=== PATIENT | male | born 1990 | race American Indian/Alaskan Native ===

== ENCOUNTER 2019-05-21 07:47 | Emergency (ER) | payer MEDICAID ==
[2019-05-21 08:01] VITALS: BP 117/71; PULSE 100
--- NOTE | 2019-05-21 08:01 | EDM.PDOC ---
ED HPI GENERAL MEDICAL PROBLEM - General Stated Complaint: FEVER/SORE THROAT/CHEST HURTS/EARS HURT Time Seen by Provider: 05/21/19 08:01 Source of Information: Reports: Patient, RN, RN Notes Reviewed History Limitations: Reports: No Limitations - History of Present Illness INITIAL COMMENTS - FREE TEXT/NARRATIVE: Pt to ER with c/o sinus congestion, cough, sore throat, sore chest, ear pain, headache, fever since Saturday. He states it has been getting worse. Has been taking Tylenol, Dayquil, and Robitussin without help. Patient denies N/V/D. States fever has gotten up to 102. States he has generalized body aches. Onset: Gradual Onset Date: 05/19/19 Duration: Constant, Getting Worse Location: Reports: Head, Face, Chest Head Pain Score (Numeric/FACES): 5 - Related Data Allergies Allergy/AdvReac Type Severity Reaction Status Date / Time Penicillins Allergy Rash Verified 05/21/19 07:59 Home Meds: Home Meds Omeprazole Magnesium [Prilosec Otc] 20 mg PO DAILY 10/02/18 [History] Past Medical History - Past Health History Medical/Surgical History: Denies Medical/Surgical History Social & Family History - Family History Family Medical History: Noncontributory - Caffeine Use Caffeine Use: Reports: Coffee, Soda ED ROS GENERAL - Review of Systems Review Of Systems: ROS reveals no pertinent complaints other than HPI. ED EXAM, GENERAL - Physical Exam Exam: See Below Exam Limited By: No Limitations General Appearance: Alert, WD/WN, Mild Distress Eye Exam: Bilateral Eye: EOMI, Normal Inspection Ears: Normal External Exam, Normal Canal, Hearing Grossly Normal, Other Ear Exam: Bilateral Ear: TM Dull Nose: Normal Inspection, Other (congestion) Throat/Mouth: Other (pharnyx erythematous) Head: Atraumatic, Normocephalic Neck: Normal Inspection, Supple, Non-Tender, Full Range of Motion, Lymphadenopathy (L), Lymphadenopathy (R) Respiratory/Chest: No Respiratory Distress, Lungs Clear, Normal Breath Sounds, No Accessory Muscle Use, Chest Non-Tender Cardiovascular: Normal Peripheral Pulses, Regular Rate, Rhythm, No Edema, No Gallop, No JVD, No Murmur, No Rub Peripheral Pulses: 2+: Radial (L), Radial (R) GI/Abdominal: Normal Bowel Sounds, Soft, Non-Tender, No Organomegaly, No Distention (Male) Exam: Deferred Rectal (Males) Exam: Deferred Back Exam: Normal Inspection, Full Range of Motion, NT Neurological: Alert, Oriented, CN II-XII Intact, Normal Cognition, Normal Gait, Normal Reflexes, No Motor/Sensory Deficits Psychiatric: Normal Affect, Normal Mood Skin Exam: Warm, Dry, Intact, Normal Color, No Rash Lymphatic: Adenopathy (+2 ant cervical bilaterally) Course - Vital Signs Last Recorded V/S: Last Vital Signs Temp 97.2 F 05/21/19 07:59 Pulse 100 05/21/19 07:59 Resp 16 05/21/19 07:59 BP 117/71 05/21/19 07:59 Pulse Ox 99 05/21/19 07:59 - Orders/Labs/Meds Orders: Active Orders 24 hr Category Date Time Status CULTURE STREP A CONFIRMATION [RM] Stat Lab 05/21/19 08:05 Results STREP SCRN A RAPID W CULT CONF [] Stat Lab 05/21/19 08:05 Received Labs: Rapid Strep: Negative Influenza A: Influenza B: Departure - Departure Time of Disposition: 08:42 Disposition: Home, Self-Care 01 Condition: Fair Clinical Impression: URI (upper respiratory infection) Qualifiers: URI type: unspecified viral URI Qualified Code(s): J06.9 - Acute upper respiratory infection, unspecified - Discharge Information *PRESCRIPTION DRUG MONITORING PROGRAM REVIEWED*: No *COPY OF PRESCRIPTION DRUG MONITORING REPORT IN PATIENT VIJI: No Instructions: Cool Mist Vaporizer, Viral Respiratory Infection, [id number], How to Perform a Sinus Rinse, [id number], Upper Respiratory Infection, Adult, [id number] Forms: ED Department Discharge Additional Instructions: RX: Cheratussin, Flonase May use Tylenol and/or Ibuprofen as directed for pain/fever Drink plenty of water/gatorade May use sinus rinses as directed Follow up with your primary care facility if no improvement Rest - My Orders Last 24 Hours: My Active Orders 05/21/19 08:05 CULTURE STREP A CONFIRMATION [RM] Stat STREP SCRN A RAPID W CULT CONF [RM] Stat - Assessment/Plan Last 24 Hours: My Active Orders 05/21/19 08:05 CULTURE STREP A CONFIRMATION [RM] Stat STREP SCRN A RAPID W CULT CONF [RM] Stat
== END 2019-05-21 08:50 | disposition home or self-care (01) ==
LOC: DL.ED 07:47
DX: J06.9 Acute upper respiratory infection, unspecified (principal); Z88.0 Allergy status to penicillin; Z79.899 Other long term (current) drug therapy
CPT/HCPCS: 87081; 87430; 87804; 99283

== ENCOUNTER 2019-09-04 18:26 | Emergency (ER) | payer MEDICAID ==
[2019-09-04 18:41] VITALS: BP 133/92; PULSE 80
--- NOTE | 2019-09-04 18:58 | EDM.PDOC ---
ED HPI GENERAL MEDICAL PROBLEM - General Chief Complaint: Gastrointestinal Problem Stated Complaint: STOMACH, NAUSEA, GROGGY Time Seen by Provider: 09/04/19 18:56 Source of Information: Reports: Patient History Limitations: Reports: No Limitations - History of Present Illness INITIAL COMMENTS - FREE TEXT/NARRATIVE: few days h/o nausea but eating ok, whole family with pos brandyz. been working today but nit getting better. - Related Data Allergies Allergy/AdvReac Type Severity Reaction Status Date / Time Penicillins Allergy Rash Verified 09/04/19 18:37 Home Meds: Home Meds Omeprazole Magnesium [Prilosec Otc] 20 mg PO DAILY 10/02/18 [History] Past Medical History - Past Health History Medical/Surgical History: Denies Medical/Surgical History HEENT History: Reports: Impaired Vision Cardiovascular History: Reports: None Respiratory History: Reports: None Gastrointestinal History: Reports: None Genitourinary History: Reports: None Musculoskeletal History: Reports: None Neurological History: Reports: None Psychiatric History: Reports: None Endocrine/Metabolic History: Reports: None Hematologic History: Reports: None Immunologic History: Reports: None Oncologic (Cancer) History: Reports: None Dermatologic History: Reports: None - Infectious Disease History Infectious Disease History: Reports: None - Past Surgical History Head Surgeries/Procedures: Reports: None Social & Family History - Family History Family Medical History: Noncontributory - Tobacco Use Smoking Status *Q: Never Smoker - Caffeine Use Caffeine Use: Reports: Coffee, Soda - Recreational Drug Use Recreational Drug Use: No ED ROS GENERAL - Review of Systems Review Of Systems: Comprehensive ROS is negative, except as noted in HPI. ED EXAM, GI/ABD - Physical Exam Exam: See Below Exam Limited By: No Limitations General Appearance: Alert, WD/WN, Mild Distress, Other (discomfort). No: Active Emesis Ears: Hearing Grossly Normal Throat/Mouth: Normal Voice, No Airway Compromise Head: Atraumatic Neck: Non-Tender, Full Range of Motion Respiratory/Chest: No Respiratory Distress Cardiovascular: Regular Rate, Rhythm GI/Abdominal Exam: Soft, Non-Tender Neurological: Alert, Oriented, Normal Cognition, Normal Gait, No Motor/Sensory Deficits Psychiatric: Flat Affect Skin Exam: Warm, Dry, Normal Color Lymphatic: No Adenopathy Course - Vital Signs Last Recorded V/S: Last Vital Signs Temp 36.7 C 09/04/19 18:38 Pulse 80 09/04/19 18:38 Resp 16 09/04/19 18:38 BP 133/92 H 09/04/19 18:38 Pulse Ox 99 09/04/19 18:38 - Re-Assessments/Exams Free Text/Narrative Re-Assessment/Exam: 09/04/19 19:34 results discussed with pt. Departure - Departure Time of Disposition: 19:35 Disposition: Home, Self-Care 01 Condition: Good Clinical Impression: Flu syndrome - Discharge Information Instructions: Influenza, Adult, [id number] Forms: ED Department Discharge Additional Instructions: 1) rest and sleep as much as possible 2) keep warm, drink lots of hot liquids 3) tylenol or motrin for fever and body aches 4) recheck as needed rx given; zofran 4mg ODT bid prn x 4 Sepsis Event Note - Evaluation Sepsis Screening Result: No Definite Risk - Focused Exam Vital Signs: Vital Signs Temp Pulse Resp BP Pulse Ox 09/04/19 18:38 36.7 C 80 16 133/92 H 99 Date Exam was Performed: 09/04/19 Time Exam was Performed: 19:34
== END 2019-09-04 19:40 | disposition home or self-care (01) ==
LOC: DL.ED 18:26
DX: J11.1 Influenza due to unidentified influenza virus with other respiratory manifestations (principal); Z88.0 Allergy status to penicillin
CPT/HCPCS: 87804; 99283

== ENCOUNTER 2020-12-26 08:48 | Emergency (ER) | payer BC, MEDICAID ==
[2020-12-26 09:03] VITALS: BP 139/83; PULSE 70
--- NOTE | 2020-12-26 09:28 | EDM.PDOC ---
ED HPI GENERAL MEDICAL PROBLEM - General Chief Complaint: Abdominal Pain Stated Complaint: [id number] BAD PAIN IN STOMACH Time Seen by Provider: 12/26/20 09:05 Source of Information: Reports: Patient, Old Records, RN, RN Notes Reviewed History Limitations: Reports: No Limitations - History of Present Illness INITIAL COMMENTS - FREE TEXT/NARRATIVE: Pt presents to ER from home by POV with c/o left sided abdominal pain for 3 weeks. He states he went to clinic and was told he had a "stomach bug" but no specific treatment was prescribed. He reports Hx of chronic left sided abdominal pain that has waxed and waned for over three years. Pt was prescribed Omeprazole at one point, but hasn't noticed any change with it. He states this pain flared up once about a year ago, and he went to the ER in [place] and was diagnosed with anxiety disorder. Pt states he does have a lot of anxiety, but he hasn't noticed an association of his anxiety level with abdominal pain flare ups. He has never had a GI consultation or endoscopy. Denies fever, chills, N/V/D/C, dysuria, radiating pain, flank pain, or black/bloody/melanotic stools. Duration: Chronic, Intermittent, Recurring, Waxing/Waning Location: Reports: Abdomen Quality: Reports: Ache Severity: Moderate Improves with: Reports: None Worsens with: Reports: None Associated Symptoms: Reports: No Other Symptoms Left Lower Abdomen Pain Score (Numeric/FACES): 6 - Related Data Allergies Allergy/AdvReac Type Severity Reaction Status Date / Time Penicillins Allergy Rash Verified 12/26/20 08:58 Home Meds: Home Meds Omeprazole Magnesium [Prilosec Otc] 20 mg PO DAILY 10/02/18 [History] Past Medical History - Past Health History Medical/Surgical History: Denies Medical/Surgical History HEENT History: Reports: Impaired Vision Cardiovascular History: Reports: None Respiratory History: Reports: None Gastrointestinal History: Reports: GERD Genitourinary History: Reports: None Musculoskeletal History: Reports: None Neurological History: Reports: None Psychiatric History: Reports: Anxiety Endocrine/Metabolic History: Reports: None Hematologic History: Reports: None Immunologic History: Reports: None Oncologic (Cancer) History: Reports: None Dermatologic History: Reports: None - Infectious Disease History Infectious Disease History: Reports: None - Past Surgical History Head Surgeries/Procedures: Reports: None Social & Family History - Family History Family Medical History: No Pertinent Family History - Tobacco Use Tobacco Use Status *Q: Former Tobacco User Used Tobacco, but Quit: Yes Month/Year Tobacco Last Used: 09/26/20 - Caffeine Use Caffeine Use: Reports: Soda - Recreational Drug Use Recreational Drug Use: No - Living Situation & Occupation Living situation: Reports: with Family Occupation: Employed ED ROS GENERAL - Review of Systems Review Of Systems: Comprehensive ROS is negative, except as noted in HPI. ED EXAM, GI/ABD - Physical Exam Exam: See Below Exam Limited By: No Limitations Eyes: Bilateral: Normal Appearance Nose: Normal Inspection Throat/Mouth: Normal Inspection, Normal Lips, Normal Voice, No Airway Compromise Head: Atraumatic, Normocephalic Neck: Normal Inspection Respiratory/Chest: No Respiratory Distress, Lungs Clear, Normal Breath Sounds, No Accessory Muscle Use, Chest Non-Tender Cardiovascular: Regular Rate, Rhythm GI/Abdominal Exam: Normal Bowel Sounds, Soft, No Organomegaly, No Distention, No Abnormal Bruit, No Mass, Pelvis Stable, Tender (LUQ, LLQ). No: Guarding, Rigid, Rebound Back Exam: Normal Inspection Extremities: Normal Inspection Neurological: Alert, Oriented, CN II-XII Intact, Normal Cognition, Normal Gait, No Motor/Sensory Deficits Psychiatric: Normal Affect, Normal Mood Skin Exam: Warm, Dry, Intact, Normal Color, No Rash Course - Vital Signs Last Recorded V/S: Last Vital Signs Temp 97.0 F 12/26/20 08:59 Pulse 70 12/26/20 08:59 Resp 16 12/26/20 08:59 BP 139/83 12/26/20 08:59 Pulse Ox 99 12/26/20 08:59 - Orders/Labs/Meds Orders: Active Orders 24 hr Category Date Time Status Peripheral IV Care [RC] . DIRECTED Care 12/26/20 09:53 Active UA RFX EMIL AND CULT IF INDIC [URIN] Stat Lab 12/26/20 10:25 Received Sodium Chloride 0.9% [Saline Flush] Med 12/26/20 09:52 Active 10 ml FLUSH ASDIRECTED PRN Peripheral IV Insertion Adult [OM.PC] Stat Oth 12/26/20 09:52 Ordered Medication Orders Sodium Chloride (Sodium Chloride 0.9% 10 Ml Syringe) 10 ml FLUSH ASDIRECTED PRN PRN Reason: Keep Vein Open Last Admin: 12/26/20 10:00 Dose: 10 ml Documented by: SAMANTHA Labs: Laboratory Tests 12/26/20 12/26/20 Range/Units 09:21 09:21 WBC 6.6 (5.0-10.0) 10^3/uL RBC 6.03 (4.6-6.2) 10^6/uL Hgb 16.7 (14.0-18.0) g/dL Hct 50.2 (40.0-54.0) % MCV 83.3 (80-100) fL MCH 27.7 (27.0-34.0) pg MCHC 33.3 (33.0-35.0) g/dL Plt Count 286 (150-450) 10^3/uL Neut % (Auto) 66.3 (42.2-75.2) % Lymph % (Auto) 26.0 (20.5-50.1) % [place] % (Auto) 5.4 (2-8) % Eos % (Auto) 2.0 (1.0-3.0) % Baso % (Auto) 0.3 (0.0-1.0) % Sodium 141 (136-145) mmol/L Potassium 4.6 (3.5-5.1) mmol/L Chloride 102 (98-107) mmol/L Carbon Dioxide 30 (21-32) mmol/L Anion Gap 13.6 H (7-13) mEq/L BUN 10 (7-18) mg/dL Creatinine 1.02 (0.70-1.30) mg/dL Est Cr Clr Drug Dosing 130.01 mL/min Estimated GFR (MDRD) > 60 BUN/Creatinine Ratio 9.8 (No establ ref range) Glucose 98 (70-99) mg/dL Calcium 9.1 (8.5-10.1) mg/dL Total Bilirubin 0.6 (0.2-1.0) mg/dL AST 25 (15-37) U/L ALT 54 (16-63) U/L Alkaline Phosphatase 86 (46-116) U/L C-Reactive Protein < 0.2 (0.0-0.9) mg/dL Total Protein 8.2 (6.4-8.2) g/dL Albumin 4.1 (3.4-5.0) g/dL Globulin 4.1 Albumin/Globulin Ratio 1.0 Amylase 86 (25-115) U/L Lipase 89 (73-393) U/L Meds: Medications Generic Name Dose Route Start Last Admin Trade Name Freq PRN Reason Stop Dose Admin Sodium Chloride 10 ml 12/26/20 09:52 12/26/20 10:00 Sodium Chloride 0.9% 10 Ml Syringe FLUSH 10 ml ASDIRECTED PRN Administration Keep Vein Open Discontinued Medications Generic Name Dose Route Start Last Admin Trade Name Freq PRN Reason Stop Dose Admin Iopamidol 100 ml 12/26/20 09:52 12/26/20 10:04 Iopamidol 612 Mg/Ml 100 Ml Bottle IVPUSH 12/26/20 09:53 100 ml ONETIME ONE Administration - Radiology Interpretation Free Text/Narrative:: [facility] Final Radiology Report Call: [phone] assistance Online chat: [email or web address] Name: JOSE OMER Age: 30Years M Date: 12/26/2020 SSN: -- : 1990 Study: CT ABDOMEN PELVIS W CONT Requesting Physician: CARLOTA CLAYTON Images: [id number] Addl Studies: Provided Clinical History: Left sided abdominal pain Contrast: With Contrast Medium: Isovue 300 Contrast Amount: 100 mL Contrast Method: Intravenous (IV) Page 1 of 2 PROCEDURE INFORMATION: Exam: CT Abdomen And Pelvis With Contrast Exam date and time: 12/26/2020 10:10 AM Age: 30 years old Clinical indication: Abdominal pain; Localized; Left; Additional info: Left sided abdominal pain TECHNIQUE: Imaging protocol: Computed tomography of the abdomen and pelvis with contrast. Radiation optimization: All CT scans at this facility use at least one of these dose optimization techniques: automated exposure control; mA and/or kV adjustment per patient size (includes targeted exams where dose is matched to clinical indication); or iterative reconstruction. Contrast material: ISOVUE 300; Contrast volume: 100 ml; Contrast route: INTRAVENOUS (IV); COMPARISON: No relevant prior studies available. FINDINGS: Lungs: The visualized lung bases are essentially clear. Liver: Normal. No mass. Gallbladder and bile ducts: No gallstones are evident, but ultrasound would be more sensitive. No gross biliary ductal dilatation. Pancreas: Normal. No ductal dilation. Spleen: Normal. No splenomegaly. Adrenal glands: Normal. No mass. Kidneys and ureters: Normal. No hydronephrosis. Stomach and bowel: The unopacified small bowel is not significantly distended to suggest obstruction. Question mild wall thickening versus underdistention of the descending and sigmoid colon. No pneumatosis. Appendix: The appendix appears normal. JOSE OMER | Final Radiology Report CONFIDENTIALITY STATEMENT This report is intended only for use by the referring physician, and only in accordance with law. If you received this in error, call [phone]. Page 2 of 2 Intraperitoneal space: No free air or significant free fluid. Vasculature: Unremarkable. No abdominal aortic aneurysm. Lymph nodes: Unremarkable. No enlarged lymph nodes. Urinary bladder: Unremarkable. Reproductive: Unremarkable as visualized. Bones/joints: There are very mild degenerative changes of the spine. Soft tissues: Unremarkable. IMPRESSION: Question mild wall thickening versus underdistention of the descending and sigmoid colon. Correlate as to any potential non-specific colitis. Thank you for allowing us to participate in the care of your patient. Dictated and Authenticated by: Toni Ballesteros MD 12/26/2020 10:32 AM Central Time ([place] & [place]) Departure - Departure Time of Disposition: 10:40 Disposition: Home, Self-Care 01 Condition: Good Clinical Impression: Colitis - Discharge Information *PRESCRIPTION DRUG MONITORING PROGRAM REVIEWED*: Not Applicable *COPY OF PRESCRIPTION DRUG MONITORING REPORT IN PATIENT VIJI: Not Applicable Instructions: Colitis Forms: ED Department Discharge Additional Instructions: Rx: Bentyl 20mg Rx: Prednisone 20mg Follow up in clinic for recheck and referral to a GI specialist. Sepsis Event Note (ED) - Evaluation Sepsis Screening Result: No Definite Risk - Focused Exam Vital Signs: Vital Signs Temp Pulse Resp BP Pulse Ox 12/26/20 08:59 97.0 F 70 16 139/83 99 - My Orders Last 24 Hours: My Active Orders 12/26/20 09:52 Sodium Chloride 0.9% [Saline Flush] 10 ml FLUSH ASDIRECTED PRN Peripheral IV Insertion Adult [OM.PC] Stat 12/26/20 09:53 Peripheral IV Care [RC] . DIRECTED 12/26/20 10:25 UA RFX EMIL AND CULT IF INDIC [URIN] Stat - Assessment/Plan Last 24 Hours: My Active Orders 12/26/20 09:52 Sodium Chloride 0.9% [Saline Flush] 10 ml FLUSH ASDIRECTED PRN Peripheral IV Insertion Adult [OM.PC] Stat 12/26/20 09:53 Peripheral IV Care [RC] . DIRECTED 12/26/20 10:25 UA RFX EMIL AND CULT IF INDIC [URIN] Stat
[2020-12-26 09:49] LABS: ANION GAP 13.6 mEq/L (7-13); CHLORIDE,CL 102 mmol/L (98-107); SODIUM,NA 141 mmol/L (136-145)
[2020-12-26] MEDS ORDERED: Iopamidol 612 MG/ML 100 ML Bottle IVPUSH ONE (09:52)
[2020-12-26] MEDS ORDERED: Sodium Chloride 0.9% 10 ML Syringe FLUSH PRN (09:52)
--- NOTE | 2020-12-26 10:33 | CT ---
PROCEDURE INFORMATION: Exam: CT Abdomen And Pelvis With Contrast Exam date and time: 12/26/2020 10:10 AM Age: 30 years old Clinical indication: Abdominal pain; Localized; Left; Additional info: Left sided abdominal pain TECHNIQUE: Imaging protocol: Computed tomography of the abdomen and pelvis with contrast. Radiation optimization: All CT scans at this facility use at least one of these dose optimization techniques: automated exposure control; mA and/or kV adjustment per patient size (includes targeted exams where dose is matched to clinical indication); or iterative reconstruction. Contrast material: ISOVUE 300; Contrast volume: 100 ml; Contrast route: INTRAVENOUS (IV); COMPARISON: No relevant prior studies available. FINDINGS: Lungs: The visualized lung bases are essentially clear. Liver: Normal. No mass. Gallbladder and bile ducts: No gallstones are evident, but ultrasound would be more sensitive. No gross biliary ductal dilatation. Pancreas: Normal. No ductal dilation. Spleen: Normal. No splenomegaly. Adrenal glands: Normal. No mass. Kidneys and ureters: Normal. No hydronephrosis. Stomach and bowel: The unopacified small bowel is not significantly distended to suggest obstruction. Question mild wall thickening versus underdistention of the descending and sigmoid colon. No pneumatosis. Appendix: The appendix appears normal. Intraperitoneal space: No free air or significant free fluid. Vasculature: Unremarkable. No abdominal aortic aneurysm. Lymph nodes: Unremarkable. No enlarged lymph nodes. Urinary bladder: Unremarkable. Reproductive: Unremarkable as visualized. Bones/joints: There are very mild degenerative changes of the spine. Soft tissues: Unremarkable. IMPRESSION: Question mild wall thickening versus underdistention of the descending and sigmoid colon. Correlate as to any potential non-specific colitis.
== END 2020-12-26 11:12 | disposition home or self-care (01) ==
LOC: DL.ED 08:48
DX: K52.9 Noninfective gastroenteritis and colitis, unspecified (principal); K21.9 Gastro-esophageal reflux disease without esophagitis; Z88.0 Allergy status to penicillin; Z79.899 Other long term (current) drug therapy; Z87.891 Personal history of nicotine dependence
CPT/HCPCS: 36415; 74177; 80053; 81003; 82150; 83690; 85025; 86140; 99283; 99284-25; Q9967

== ENCOUNTER 2021-01-19 06:15 | Day surgery (SDC) | payer MEDICAID ==
[~2021-01-19 06:15] MED LIST: Midazolam 1 MG/ML 2 ML SDV ONE; fentaNYL 100 MCG/2 ML SDV ONE
[2021-01-19] MEDS ORDERED: Midazolam 1 MG/ML 2 ML SDV IV ONE ×3 (06:16→07:38)
[2021-01-19] MEDS ORDERED: fentaNYL 100 MCG/2 ML SDV IV ONE ×3 (06:16→07:37)
[2021-01-19] MEDS ORDERED: Dextrose 5%-0.45% NaCl 1,000 ML IV SCH (06:30)
--- NOTE | 2021-01-19 09:44 | OR ---
DATE: 01/19/2021 PROCEDURE: Esophagogastroduodenoscopy and multiple pinch biopsies. INSTRUMENT USED: [id number] Olympus video panendoscope. PREMEDICATIONS: No oral or topical anesthesia used. Fentanyl 100 mcg intravenous, Versed 2 mg intravenous. The procedure was done under pulse oximetry, BP recording, and radiation monitor. INDICATION: The patient with longstanding heartburn, dyspepsia, abdominal bloating, and diarrhea unexplained and not responsive to medical measures, on PPI. Esophagogastroduodenoscopy is performed for detection of any active erosive lesions, Holly esophagus and/or malignancy also under consideration, H pylori status to be determined, endoscopic hemostasis therapy if needed. PROCEDURE IN DETAIL: The scope was passed with ease. Adequate visualization of the esophagus was made from proximal to distal areas. No upper esophageal lesions identified. No distal esophageal stricture. No uphill or downhill esophageal varices. No Mona-Jacobo tear. No evidence of erosive esophagitis by [place] criteria. No esophageal polyp or tumor mass identified. No proximal gastric varices noted. Gastric fundus examination by retroflexion showed no polypoid lesions. No gastric ulcer, malignant mass, or vascular ectasia identified. Duodenal bulb showed no ulcer. Visualized second part of the duodenum was unremarkable. Multiple pinch biopsies, 4 in number, were taken from different areas of the second part of the duodenum and tissues were also obtained from the duodenal bulb at 9 and 12 o'clock positions and sent for any histopathologic evidence of celiac disease. Multiple pinch biopsies were also taken from the gastric antrum and proximal body and sent for PyloriTek test for H pylori and histopathology. No bleeding was noted from any of the visualized areas at the completion of examination. Photographs were taken of the duodenal bulb, gastric antrum, fundus, and distal esophagus. IMPRESSION: Normal study. The patient tolerated the procedure well. [facility] /[id number]
[2021-01-19 09:56] VITALS: BP 120/74; PULSE 67
== END 2021-01-19 09:45 | disposition home or self-care (01) ==
LOC: DL.ENDO 06:15
PROVIDERS: ATTEND Internal Medicine Gastroenterology
DX: K29.50 Unspecified chronic gastritis without bleeding (principal); B96.81 Helicobacter pylori [H. pylori] as the cause of diseases classified elsewhere; E66.09 Other obesity due to excess calories; K21.9 Gastro-esophageal reflux disease without esophagitis; Z87.891 Personal history of nicotine dependence; Z98.890 Other specified postprocedural states; Z88.0 Allergy status to penicillin; Z88.8 Allergy status to other drugs, medicaments and biological substances; Z68.39 Body mass index [BMI] 39.0-39.9, adult
CPT/HCPCS: 87077; J2250; J3010; J7042

== ENCOUNTER 2021-02-20 05:41 | Day surgery (SDC) | payer MEDICAID ==
[2021-02-20] MEDS ORDERED: fentaNYL 100 MCG/2 ML SDV IV ONE ×7 (05:42→07:55)
[2021-02-20] MEDS ORDERED: Midazolam 1 MG/ML 2 ML SDV IV ONE ×9 (05:42→08:00)
[2021-02-20] MEDS ORDERED: Dextrose 5%-0.45% NaCl 1,000 ML IV SCH (06:30)
[2021-02-20 08:09] VITALS: BP 118/70; PULSE 97
--- NOTE | 2021-02-20 16:28 | OR ---
DATE: 02/20/2021 PROCEDURES: Total colonoscopy, terminal ileoscopy, narrow band imaging, and multiple pinch biopsies. INSTRUMENT USED: [id number] Olympus video colonoscope. PREMEDICATIONS: Fentanyl 200 mcg intravenous, Versed 6 mg intravenous. The procedure was done under pulse oximetry, BP recording, and equipment monitor phototypesetting. INDICATION: The patient with previous Clostridioides difficile infection, treated with persistent diarrhea, unexplained. Colonoscopic examination is done for detection of any polypoid lesions and removal, biopsies to be obtained for any evidence of microscopic colitis, endoscopic hemostasis therapy if needed. DESCRIPTION OF PROCEDURE: Initial rectal exam showed some anal sphincter spasm. Rigid anoscopy was normal. The colonoscope was passed with ease up to and beyond the ileocecal junction to visualize normal-appearing terminal ileum, NBI views were obtained, photographs were taken, multiple pinch biopsies were taken from the terminal ileum and sent for histopathology. Photographs were taken of the normal-appearing cecum. No bleeding was noted from any of the visualized areas at the commencement of the examination. The bowel preparation was one of [place] scale 2 in right and left colon, 3 in transverse colon, total score 7. No stricture, no vascular ectasia, no large isolated ulcerations seen. No evidence of diffuse inflammatory bowel disease in the form of friability, contact bleeding, or ulcerations. No polyp or tumor mass identified. Probing the proximal sides of folds and flexures using adequate distention and clearing up the stool material, withdrawal of the scope was made. Multiple pinch biopsies were taken from the normal-appearing mucosa of the mid transverse colon, mid descending colon, and rectosigmoid, and sent for any histopathologic evidence of microscopic colitis. No bleeding was noted from any of the visualized areas at the completion of examination. IMPRESSION: Normal study. The patient tolerated the procedure well. [facility] /[id number]
== END 2021-02-20 10:13 | disposition home or self-care (01) ==
LOC: DL.ENDO 05:41
PROVIDERS: ATTEND Internal Medicine Gastroenterology
DX: A04.72 Enterocolitis due to Clostridium difficile, not specified as recurrent (principal); E66.01 Morbid (severe) obesity due to excess calories; F41.1 Generalized anxiety disorder; Z68.34 Body mass index [BMI] 34.0-34.9, adult
CPT/HCPCS: J2250; J3010; J7042

== ENCOUNTER 2021-08-26 18:07 | Emergency (ER) | payer BC, MEDICAID ==
[2021-08-26 19:24] LABS: CORONAVIRUS COVID-19 NAA NEGATIVE (NEGATIVE); RESPIRATORY SYNCYTIAL VIR NAA NEGATIVE (NEGATIVE)
[2021-08-26] MEDS ORDERED: Oseltamivir 75 MG Cap PO ONE (20:02)
[2021-08-26 20:12] VITALS: PULSE 101
== END 2021-08-26 21:28 | disposition home or self-care (01) ==
LOC: DL.ED 18:07
DX: J10.1 Influenza due to other identified influenza virus with other respiratory manifestations (principal); E66.9 Obesity, unspecified; K21.9 Gastro-esophageal reflux disease without esophagitis; Z88.0 Allergy status to penicillin; Z88.1 Allergy status to other antibiotic agents; Z20.822 Contact with and (suspected) exposure to COVID-19
CPT/HCPCS: 0241U; 99283; A9270; 99284

== ENCOUNTER 2021-08-29 17:02 | Emergency (ER) | payer BC ==
[2021-08-29 21:02] VITALS: BP 131/95; PULSE 88
--- NOTE | 2021-08-29 21:14 | EDM.PDOC ---
ED HPI GENERAL MEDICAL PROBLEM - General Chief Complaint: ENT Problem Stated Complaint: POSSIBLE STREP THROAT-ALREADY TESTED NEG FOR COVID Time Seen by Provider: 08/29/21 20:50 Source of Information: Reports: Patient History Limitations: Reports: No Limitations - History of Present Illness INITIAL COMMENTS - FREE TEXT/NARRATIVE: This 31 yo male patient reports to the ED due to a sore throat and a possible exposure to strep. The patient did test positive for Influenza A on Saturday. The patient was given a script for Tamiflu, but only took 1 dose and stopped medication due to GI symptoms. The patient has been taking over the counter medications for temporary symptom relief. 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, NSAIDS, Other Medication(s) - Related Data Allergies Allergy/AdvReac Type Severity Reaction Status Date / Time cefaclor [From Ceclor] Allergy Other Verified 08/26/21 20:41 Penicillins Allergy Rash Verified 08/26/21 20:41 Home Meds: Home Meds Omeprazole Magnesium [Prilosec Otc] 20 mg PO DAILY 10/02/18 [History] diphenhydrAMINE HCL [Diphenhydramine HCl] 25 mg PO BID 01/04/21 [History] Past Medical History - Past Health History Medical/Surgical History: Denies Medical/Surgical History HEENT History: Reports: Impaired Vision Cardiovascular History: Reports: None Respiratory History: Reports: None Gastrointestinal History: Reports: GERD Genitourinary History: Reports: None Musculoskeletal History: Reports: None Neurological History: Reports: None Psychiatric History: Reports: Anxiety Endocrine/Metabolic History: Reports: Obesity/BMI 30+ Hematologic History: Reports: None Immunologic History: Reports: None Oncologic (Cancer) History: Reports: None Dermatologic History: Reports: Eczema - Infectious Disease History Infectious Disease History: Reports: Chicken Pox, Helicobacter Pylori, Novel Coronavirus - Past Surgical History Head Surgeries/Procedures: Reports: None HEENT Surgical History: Reports: None Cardiovascular Surgical History: Reports: None Respiratory Surgical History: Reports: None GI Surgical History: Reports: None Neurological Surgical History: Reports: None Oncologic Surgical History: Reports: None Dermatological Surgical History: Reports: Other (See Below) Social & Family History - Family History Family Medical History: No Pertinent Family History - Caffeine Use Caffeine Use: Reports: Soda Caffeine Use Comment: occasional - Living Situation & Occupation Living situation: Reports: with Family Occupation: Employed ED ROS ENT - Review of Systems Review Of Systems: Comprehensive ROS is negative, except as noted in HPI. ED EXAM, ENT - Physical Exam Exam: See Below Exam Limited By: No Limitations General Appearance: Alert, WD/WN, No Apparent Distress Eye Exam: Bilateral Eye: EOMI, Normal Inspection, PERRL Ears: Normal External Exam, Normal Canal, Hearing Grossly Normal, Normal TMs Nose: Normal Inspection, Normal Mucousa, No Blood Mouth/Throat: Normal Inspection, Normal Gums, Normal Lips, Normal Oropharynx, Normal Teeth Head: Atraumatic, Normocephalic Neck: Normal Inspection, Supple, Non-Tender, Full Range of Motion Respiratory/Chest: No Respiratory Distress, Lungs Clear, Normal Breath Sounds, No Accessory Muscle Use, Chest Non-Tender Cardiovascular: Normal Peripheral Pulses, Regular Rate, Rhythm, No Edema, No Gallop, No JVD, No Murmur, No Rub GI/Abdominal: Normal Bowel Sounds, Soft, Non-Tender, No Organomegaly, No Distention, No Abnormal Bruit, No Mass (Male) Exam: Deferred Rectal (Males) Exam: Deferred Back: Normal Inspection, Full Range of Motion Extremities: Normal Inspection, Normal Range of Motion, Non-Tender, No Pedal Edema, Normal Capillary Refill Neurological: Alert, Oriented, CN II-XII Intact, Normal Cognition, Normal Gait, Normal Reflexes, No Motor/Sensory Deficits Psychiatric: Normal Affect, Normal Mood Skin: Warm, Dry, Intact, Normal Color, No Rash Lymphatic: No Adenopathy Course - Vital Signs Last Recorded V/S: Last Vital Signs Temp 97.5 F 08/29/21 21:00 Pulse 88 08/29/21 21:00 Resp 18 08/29/21 21:00 BP 131/95 H 08/29/21 21:00 Pulse Ox 96 08/29/21 21:00 - Orders/Labs/Meds Orders: Active Orders 24 hr Category Date Time Status CULTURE STREP A CONFIRMATION [RM] Stat Lab 08/29/21 17:16 Results STREP SCRN A RAPID W CULT CONF [RM] Stat Lab 08/29/21 17:16 Results Departure - Departure Time of Disposition: 21:11 Disposition: Home, Self-Care 01 Condition: Fair Clinical Impression: Influenza A - Discharge Information *PRESCRIPTION DRUG MONITORING PROGRAM REVIEWED*: Not Applicable *COPY OF PRESCRIPTION DRUG MONITORING REPORT IN PATIENT VIJI: Not Applicable Instructions: Influenza, Adult, [id number] Forms: ED Department Discharge Care Plan Goals: The patient was advised of the examination and lab results. Since the patient had tested positive for Influenza A on Saturday, took one dose of Tamiflu (stopped medication due to GI upset) and has been using OTC medications, the patient was tested for strep throat today (negative). The patient was encouraged to continue to use over the counter medications for temporary symptom relief. If the patient has any additional symptoms or concerns, the patient should either return to the emergency department or visit his primary care facility. Sepsis Event Note (ED) - Evaluation Sepsis Screening Result: No Definite Risk - Focused Exam Vital Signs: Vital Signs Temp Pulse Resp BP Pulse Ox 08/29/21 21:00 97.5 F 88 18 131/95 H 96
== END 2021-08-29 21:29 | disposition home or self-care (01) ==
LOC: DL.ED 17:02
DX: J10.1 Influenza due to other identified influenza virus with other respiratory manifestations (principal); K21.9 Gastro-esophageal reflux disease without esophagitis; E66.9 Obesity, unspecified; Z68.36 Body mass index [BMI] 36.0-36.9, adult; Z88.0 Allergy status to penicillin; Z88.1 Allergy status to other antibiotic agents; Z79.899 Other long term (current) drug therapy
CPT/HCPCS: 87081; 87430; 99283

== ENCOUNTER 2023-07-28 20:17 | Emergency (ER) | payer BC, MEDICAID ==
[2023-07-28 21:35] VITALS: BP 141/90; PULSE 82
[2023-07-28 22:03] LABS: INFLUENZA A NAA NEGATIVE (NEGATIVE); INFLUENZA B NAA NEGATIVE (NEGATIVE); RESPIRATORY SYNCYTIAL VIR NAA NEGATIVE (NEGATIVE)
[2023-07-28 22:05] LABS: CORONAVIRUS COVID-19 NAA POSITIVE (NEGATIVE)
== END 2023-07-28 22:19 | disposition home or self-care (01) ==
LOC: DL.ED 20:17
DX: U07.1 COVID-19 (principal); K21.9 Gastro-esophageal reflux disease without esophagitis; E66.9 Obesity, unspecified; Z79.899 Other long term (current) drug therapy; Z88.0 Allergy status to penicillin; Z88.8 Allergy status to other drugs, medicaments and biological substances
CPT/HCPCS: 0241U; 87081; 87430; 99283; 99284

== ENCOUNTER 2024-11-25 22:48 | Emergency (ER) | payer MEDICAID ==
[2024-11-25 23:30] VITALS: BP 139/87; PULSE 74
== END 2024-11-25 23:43 | disposition home or self-care (01) ==
LOC: DL.ED 22:48
DX: J02.9 Acute pharyngitis, unspecified (principal); K21.9 Gastro-esophageal reflux disease without esophagitis; E66.9 Obesity, unspecified; Z20.818 Contact with and (suspected) exposure to other bacterial communicable diseases; Z88.0 Allergy status to penicillin; Z88.8 Allergy status to other drugs, medicaments and biological substances
CPT/HCPCS: 99283

== ENCOUNTER 2025-03-05 15:36 | Emergency (ER) | payer MEDICAID ==
[2025-03-05 15:59] VITALS: BP 136/90; PULSE 96
== END 2025-03-05 16:44 | disposition home or self-care (01) ==
LOC: DL.ED 15:36
DX: H66.001 Acute suppurative otitis media without spontaneous rupture of ear drum, right ear (principal); H69.83 Other specified disorders of Eustachian tube, bilateral; E66.9 Obesity, unspecified; K21.9 Gastro-esophageal reflux disease without esophagitis; Z88.0 Allergy status to penicillin; Z88.8 Allergy status to other drugs, medicaments and biological substances; Z79.899 Other long term (current) drug therapy; Z79.811 Long term (current) use of aromatase inhibitors; Z68.41 Body mass index [BMI] 40.0-44.9, adult
CPT/HCPCS: 87081; 87430; 99283